=== PATIENT | female | born 2000 | race Caucasian/White ===

== ENCOUNTER → 2023-03-09 16:05 | Outpatient (REF) | payer BC, SELFPAY | LOC: HWRAD 16:05 | PROVIDERS: ATTENDING PHYSICIAN Otolaryngology Facial Plastic Surgery; FAMILY PHYSICIAN Family Medicine | DX: J34.2 Deviated nasal septum (principal); J33.0 Polyp of nasal cavity | CPT/HCPCS: 70486 ==

== ENCOUNTER → 2023-06-17 17:18 | Outpatient (REF) | payer BC, SELFPAY | LOC: CLAB 17:18 | PROVIDERS: ATTENDING PHYSICIAN Otolaryngology Facial Plastic Surgery | DX: J32.9 Chronic sinusitis, unspecified (principal) | CPT/HCPCS: 88304; 88311 ==